=== PATIENT | female | born 1975 | race Hispanic/Latino ===

== ENCOUNTER 2019-03-06 17:04 | Emergency (ER) | payer SELFPAY ==
[~2019-03-06] VITALS: Ht 162.6 cm; Wt 68.0 kg
--- OUTSIDE RECORDS SUMMARY | 2019-03-06 17:06 | XMS REPORT | Clinical Summary ---
Author Author [facility] Address Unknown Phone Unavailable Care Team Providers Care Web[employer] Commerce Developer Name Role Phone Asked, No Pcp PCP Unavailable Allergies Comments Active Allergy Reactions Severity Noted Date Facial swelling Codeine High 01/20/2018 Medications End Date Status Medication Sig Dispensed Refills Start Date Active docusate sodium (COLACE) Take 100 mg 0 100 MG capsule by mouth 2 (two) times a day. Active polyethylene glycol Take 17 g by 0 (MIRALAX) 17 gram packet mouth daily. Active acetaminophen (TYLENOL) Take 650 mg 0 325 MG tablet by mouth every 6 (six) hours as needed (headache). 05/13/2018 Discontinued TPN FOR DISCHARGE See most 1 Package 0 recent TPN 8 order. 05/24/2018 Discontinued omeprazole (PriLOSEC) 40 Take 1 60 capsule 1 MG capsule capsule (40 8 mg total) by mouth 2 (two) times a day. 05/24/2018 Discontinued ondansetron ODT Take 4 mg by 0 (ZOFRAN-ODT) 4 MG mouth every 8 disintegrating tablet (eight) hours as needed for nausea or vomiting. 05/24/2018 Discontinued promethazine (PHENERGAN) Take 12.5 mg 0 12.5 MG tablet by mouth every 6 (six) hours as needed for nausea or vomiting. 05/24/2018 Discontinued UNABLE TO FIND Bariatric 0 Vitamins 05/28/2018 Discontinued dextrose 5 % and 0.9 % Infuse 75 0 NaCl (DEXTROSE 5%-0.9% mL/hr into a 8 SODIUM CHLORIDE) infusion venous catheter continuously for 30 days. 05/28/2018 Discontinued enoxaparin (LOVENOX) 40 Inject 0.4 mL 12 mL 0 mg/0.4 mL syringe (40 mg total) 8 under the skin daily for 30 days. 05/28/2018 Discontinued ondansetron (ZOFRAN) 4 Infuse 2 mL 20 mL 0 mg/2 mL injection (4 mg total) 8 into a venous catheter every 4 (four) hours as needed for nausea or vomiting for up to 1 day. 05/28/2018 Discontinued pantoprazole 4 mg/mL in Infuse 10 mL 0 sodium chloride injection (40 mg total) 8 into a venous catheter daily before breakfast for 1 day. 06/26/2018 gabapentin (NEURONTIN) Take 1 90 capsule 0 300 mg capsule capsule (300 8 mg total) by mouth 3 (three) times a day for 30 days. 05/27/2018 Discontinued HYDROcodone-acetaminophen Take 1 tablet 28 tablet 0 (NORCO) 7.5-325 mg per by mouth 8 tablet every 6 (six) hours as needed for moderate pain for up to 7 days. Max Daily Amount: 4 tablets 05/27/2018 Discontinued oxyCODone 7.5 mg tablet, Take 7.5 mg 28 each 0 oral only by mouth 8 every 4 (four) hours for 7 days. Max Daily Amount: 45 mg 05/27/2018 Discontinued HYDROcodone-acetaminophen Take 1 tablet 28 tablet 0 (NORCO) 7.5-325 mg per by mouth 8 tablet every 6 (six) hours as needed for moderate pain for up to 7 days. Max Daily Amount: 4 tablets 06/03/2018 HYDROcodone-acetaminophen Take 1 tablet 28 tablet 0 (NORCO) 7.5-325 mg per by mouth 8 tablet every 6 (six) hours as needed for moderate pain for up to 7 days. Max Daily Amount: 4 tablets 06/04/2018 HYDROcodone-acetaminophen Take 2 28 tablet 0 (NORCO) 7.5-325 mg per tablets by 8 tablet mouth every 6 (six) hours as needed for moderate pain for up to 7 days. Max Daily Amount: 8 tablets 06/09/2018 traMADol (ULTRAM) 50 mg Take 1 tablet 25 tablet 0 tabletIndications: (50 mg total) 8 Postoperative pain by mouth every 6 (six) hours as needed for moderate pain for up to 7 days. Active Problems Problem Noted Date Rectus sheath hematoma 06/06/2018 Last Assessment & Plan: Under ultrasound guidance, the rectus sheath hematoma was aspirated and 55mL of dark bloody fluid was removed after prepping skin with alcohol and betadine. No signs of infection in aspirated fluid. Lidocaine given before aspiration. 16 gauge needle used. Patient given risks and benefits and she agreed to proceed and signed consent form. No complications. Hernia, lateral ventral 05/26/2018 GI obstruction 05/24/2018 Abdominal pain 05/24/2018 Ventral incisional hernia without obstruction or gangrene 05/14/2018 Last Assessment & Plan: The patient has multiple midline ventral incisional hernias with the largest are on the umbilicus. This area is tender to palpation. She reports her upper abdominal pain is resolved and denies any fevers chills or night sweats. Due to her symptoms, I will schedule a laparoscopic ventral hernia repair with mesh. The patient will need a CBC, BMP and EKG prior to surgery. Risks and benefits were discussed with the patient, the patient agreed to proceed. Surgery follow-up examination 03/03/2018 Last Assessment & Plan: Doing well s/p open VHR with mesh. 55 mL of old blood aspirated from rectus sheath using U/S. Patient still with some epigastric pain after eating. Last UGI shows no pathology. She will return to clinic in one month to see if symptoms improve. If not, the patient will need CT and possible EGD with possible dilation. Epigastric abdominal pain 02/18/2018 Complications of bariatric procedures 01/21/2018 Last Assessment & Plan: The patient is s/p sleeve leak from outside hospital and s/p gastric stent. 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 Today's upper GI shows no obstruction. Will plan for removal of stent in about 2 weeks. Continue abx. Will prescribe diflucan for vaginal yeast infection. Benadryl for itching. Encounters Care Team Description Date Type Specialty Ming Luna MD Surgery follow-up examination (Primary Dx) 10/22/2018 Orders Only General Surgery Ming Luna MD 07/07/2018 Hospital Radiology Encounter Lydia Kirk MD Paresthesias (Primary Dx) 06/30/2018 Emergency Emergency Medicine Ming Luna MD Hematoma of rectus sheath, subsequent encounter (Primary Dx); Surgery follow-up examination 06/23/2018 Office Visit General Surgery Ming Luna MD Dysphagia, unspecified type 06/16/2018 Hospital Radiology Encounter Ming Luna MD 06/09/2018 Telephone General Surgery Ming Luna MD Dysphagia, unspecified type (Primary Dx) 06/09/2018 Orders Only General Surgery Luis A Flannery MD Morris, Lee M., MD GI obstruction (HCC) (Primary Dx); Hematoma of rectus sheath, initial encounter; Abdominal pain, acute, generalized 06/05/2018 Hospital General Surgery - Encounter 06/06/2018 Ming Luna MD Surgery follow-up examination (Primary Dx) 06/03/2018 Office Visit General Surgery Brigida Emerson, SIMON 06/02/2018 Telephone General Surgery Brigida Emerson RN Postoperative pain (Primary Dx) 06/02/2018 Orders Only General Surgery Ming Luna MD LAPAROSCOPIC VENTRAL HERNIA REPAIR WITH MESH 05/26/2018 Surgery General Surgery Mary Soliman, SAMANTHA 05/26/2018 Anesthesia General Surgery Event Santo Lovett MD Morris, Lee M., MD Urinary retention (Primary Dx); Hernia, lateral ventral 05/24/2018 [facility] General Surgery - Encounter 05/28/2018 Shalom Bay MD GI obstruction (HCC) (Primary Dx); Complications of bariatric procedures; Epigastric abdominal pain; Ventral incisional hernia without obstruction or gangrene 05/24/2018 [facility] General Surgery Encounter N/A 05/24/2018 Intake Access Ming Luna MD Ventral hernia without obstruction or gangrene 05/21/2018 Pre-Admit Pre-Admission Testing Testing Appointment Osvaldo Carlisle MA Ventral hernia without obstruction or gangrene (Primary Dx) 05/14/2018 Transcribe General Surgery Orders Ming Luna MD Ventral incisional hernia without obstruction or gangrene (Primary Dx) 05/13/2018 Office Visit General Surgery N/A 03/27/2018 Intake Ming Banegas MD Surgery follow-up examination (Primary Dx); Epigastric abdominal pain 03/13/2018 Office Visit General Surgery Ming Luna MD Dysphagia, unspecified type (Primary Dx) 03/13/2018 Orders Only General Surgery after 03/05/2018 Family History Medical History Relation Name Comments No Known Problems Brother Other Father tumor Stroke Father No Known Problems Maternal Grandfather No Known Problems Maternal Grandmother Hypertension Mother No Known Problems Paternal Grandfather Other Paternal heart problems Grandmother Heart attack Paternal Uncle No Known Problems Sister No Known Problems Son Relation Name Status Comments Brother Father Alive Maternal Grandfather Maternal Grandmother Mother Alive Paternal Grandfather Paternal Grandmother Paternal Uncle Sister Alive Son Alive Social History Date Tobacco Use Types Packs/Day Years Used Never Smoker Smokeless Tobacco: Never Used Alcohol Use Drinks/Week oz/Week Comments Yes occasional Sex Assigned at Date Recorded Not on file Industry Job Start Date Occupation Not on file Not on file Not on file Travel End Travel History Travel Start No recent travel history available. Last Filed Vital Signs Time Taken Vital Sign Reading 06/30/2018 10:26 AM TRAVEL PROFESSIONAL Blood Pressure 112/65 06/30/2018 10:26 AM TRAVEL PROFESSIONAL Pulse 59 06/30/2018 10:26 AM TRAVEL PROFESSIONAL Temperature 36.7 C (98 F) 06/30/2018 10:26 AM TRAVEL PROFESSIONAL Respiratory Rate 15 06/30/2018 10:26 AM TRAVEL PROFESSIONAL Oxygen Saturation 100% - Inhaled Oxygen - Concentration 06/30/2018 7:48 AM TRAVEL PROFESSIONAL Weight 71.2 kg (157 lb) 06/30/2018 7:48 AM TRAVEL PROFESSIONAL Height 165.1 cm (5' 5") 06/30/2018 7:48 AM TRAVEL PROFESSIONAL Body Mass Index 26.13 Plan of Treatment Health Maintenance Due Date Last Done Comments INFLUENZA VACCINE 02/26/2019 Implants Device Identifier Shelf Expiration Date Model / Serial / Lot Implanted Type Area Manufactur er 12/23/2022 [id number] / / [id number] Mesh Hernia Soft 12 X 12in - Surgical N/A: Abdomen, [employer] [id number] Mesh or Middle Implanted: Qty: 1 on 05/26/2018 by Tissue Quadrant/Non Ming Luna MD [employer] 04/27/2020 ARELY [id number] / / [id number] Stent Espgl Endomaxx Otw Surgical N/A: N/A MERIT [id number] Flcvrd - [id number] Stents MEDICAL Implanted: Qty: 1 on 01/24/2018 by SYSTEMS Ming Luna MD INC Procedures Comments Procedure Name Priority Date/Time Associated Diagnosis MRI BRAIN WO CONTRAST STAT 06/30/2018 9:53 AM TRAVEL PROFESSIONAL XR CHEST 1 VW PORTABLE STAT 06/30/2018 8:26 AM TRAVEL PROFESSIONAL ESTIMATED GFR STAT 06/30/2018 8:19 AM TRAVEL PROFESSIONAL TROPONIN STAT 06/30/2018 8:19 AM TRAVEL PROFESSIONAL CREATINE KINASE, TOTAL STAT 06/30/2018 (CPK) 8:19 AM TRAVEL PROFESSIONAL COMPREHENSIVE METABOLIC STAT 06/30/2018 PANEL 8:19 AM TRAVEL PROFESSIONAL HC COMPLETE BLD COUNT STAT 06/30/2018 W/AUTO DIFF 8:19 AM TRAVEL PROFESSIONAL ECG 12-LEAD STAT 06/30/2018 7:57 AM TRAVEL PROFESSIONAL FL UGI W KUB Routine 06/16/2018 Dysphagia, unspecified 9:25 AM TRAVEL PROFESSIONAL type URINALYSIS SCREEN AND Routine 06/06/2018 MICROSCOPY, WITH REFLEX 6:50 AM TRAVEL PROFESSIONAL TO CULTURE URINE CULTURE Routine 06/06/2018 6:50 AM TRAVEL PROFESSIONAL TYPE AND SCREEN Routine 06/06/2018 4:35 AM TRAVEL PROFESSIONAL ESTIMATED GFR Routine 06/06/2018 3:52 AM TRAVEL PROFESSIONAL BASIC METABOLIC PANEL Routine 06/06/2018 3:52 AM TRAVEL PROFESSIONAL PROTHROMBIN TIME WITH INR STAT 06/06/2018 1:[address] ABDOMEN PELVIS W STAT 06/05/2018 CONTRAST 11:56 PM TRAVEL PROFESSIONAL MAGNESIUM LEVEL STAT 06/05/2018 9:50 PM TRAVEL PROFESSIONAL ESTIMATED GFR STAT 06/05/2018 9:50 PM TRAVEL PROFESSIONAL LIPASE LEVEL STAT 06/05/2018 9:50 PM TRAVEL PROFESSIONAL COMPREHENSIVE METABOLIC STAT 06/05/2018 PANEL 9:50 PM TRAVEL PROFESSIONAL HC COMPLETE BLD COUNT STAT 06/05/2018 W/AUTO DIFF 9:50 PM TRAVEL PROFESSIONAL ESTIMATED GFR Routine 05/27/2018 4:48 AM CDT BASIC METABOLIC PANEL Routine 05/27/2018 4:48 AM CDT HC COMPLETE BLD COUNT Routine 05/27/2018 W/AUTO DIFF 4:48 AM CDT ESTIMATED GFR STAT 05/26/2018 4:40 PM CDT BASIC METABOLIC PANEL STAT 05/26/2018 4:40 PM CDT HC COMPLETE BLD COUNT STAT 05/26/2018 W/AUTO DIFF 4:40 PM CDT GRAM STAIN Timed 05/26/2018 10:49 AM CDT TISSUE CULTURE Timed 05/26/2018 10:49 AM CDT SURGICAL PATHOLOGY Routine 05/26/2018 REQUEST 10:32 AM CDT ANESTHESIA INTUBATION Routine 05/26/2018 10:17 AM CDT Procedure Note - Francis Emerson - 05/26/2018 10:17 AM CDT Airway Date/Time: 05/26/2018 9:54 AM Performed by: JOYCE DOCKERY Authorized by: JOYCE DOCKERY Location: OR Difficult Airway: No Preoxygena carmina with 100% O2: Yes C-spine Precaution s Maintained Throughout : Yes Mask Ventilatio n: Easy mask Final Airway Type: Endotrache al airway Final Endotrache al Airway: ETT Cuffed: Yes Technique Used: Direct laryngosco py Insertion Site: Oral Blade Type: [place] Laryngosco pe Blade/Vide olaryngosc ope Blade Size: 2 ETT Size (mm): 7.0 Cuff at minimum occlusion pressure: Yes Measured from: Lips ETT to Lips (cm): 22 Placement Verified by: CO2 detection, direct visualizat ion and equal breath sounds Laryngosco pic view: Grade I - full view of glottis Rapid Sequence Induction (RSI): No Modified RSI: No Number of Attempts at Approach: 1 Easy BMV w/ OPA. DL x1 by Jorge emergency medicine . ETT passed atraumatic ally. REPAIR, HERNIA, VENTRAL 05/26/2018 Hernia, lateral ventral OR INCISIONAL, 10:00 AM CDT LAPAROSCOPIC Case Notes REQ 1000 START, MESH Special Needs REQ 1000 START, MESH SURGICAL PATHOLOGY Routine 05/26/2018 REQUEST 9:32 AM CDT TYPE AND SCREEN Routine 05/26/2018 3:40 AM CDT PARTIAL THROMBOPLASTIN Routine 05/26/2018 TIME (PTT) 3:40 AM CDT PROTHROMBIN TIME WITH INR Routine 05/26/2018 3:40 AM CDT HC COMPLETE BLD COUNT STAT 05/25/2018 W/AUTO DIFF 12:10 AM CDT ESTIMATED GFR Routine 05/24/2018 9:39 AM CDT BASIC METABOLIC PANEL Routine 05/24/2018 9:39 AM CDT HC COMPLETE BLD COUNT Routine 05/24/2018 W/AUTO DIFF 9:[address] ABD/PELVIC EXTERNAL Routine 05/24/2018 STUDY 1:[address] ABD/PELVIC EXTERNAL Routine 05/24/2018 STUDY 1:12 AM CDT ESTIMATED GFR STAT 05/24/2018 12:10 AM CDT PHOSPHORUS LEVEL STAT 05/24/2018 12:10 AM CDT MAGNESIUM LEVEL STAT 05/24/2018 12:10 AM CDT BASIC METABOLIC PANEL STAT 05/24/2018 12:10 AM CDT CBC HEMOGRAM Routine 05/21/2018 Ventral hernia without 9:50 AM CDT obstruction or gangrene ECG 12-LEAD Routine 05/21/2018 Ventral hernia without 9:49 AM CDT obstruction or gangrene ESTIMATED GFR Routine 05/21/2018 9:27 AM CDT BASIC METABOLIC PANEL Routine 05/21/2018 Ventral hernia without 9:27 AM CDT obstruction or gangrene after 03/05/2018 Results * MRI Brain Wo Contrast (06/30/2018 9:53 AM TRAVEL PROFESSIONAL) Specimen Narrative Performed At EXAMINATION:MRI BRAIN WO CONTRAST [facility] CLINICAL HISTORY:Focal neuro deficit6 hrsstroke suspected COMPARISON: None. FINDINGS: Noncontrast MRI of the brain is interpreted. Diffusion imaging demonstrates no abnormal restricted diffusion. The brain is normal in morphology and in signal intensity. No extra-axial collection or mass effect is seen. No hemorrhage is identified. Major vascular flow-voids are preserved. IMPRESSION: No evidence of recent infarct or other acute intracranial abnormality. [id number] Procedure Note Interface, Radiology Results Incoming - 06/30/2018 9:59 AM TRAVEL PROFESSIONAL EXAMINATION: MRI BRAIN WO CONTRAST CLINICAL HISTORY: Focal neuro deficit 6 hrs stroke suspected COMPARISON: None. FINDINGS: Noncontrast MRI of the brain is interpreted. Diffusion imaging demonstrates no abnormal restricted diffusion. The brain is normal in morphology and in signal intensity. No extra-axial collection or mass effect is seen. No hemorrhage is identified. Major vascular flow-voids are preserved. IMPRESSION: No evidence of recent infarct or other acute intracranial abnormality. [id number] Performing Organization Address City/State/Zipcode Phone Number [facility] [address] [place] [address] * XR Chest 1 Vw Portable (06/30/2018 8:26 AM TRAVEL PROFESSIONAL) Specimen Narrative Performed At EXAMINATION:XR CHEST 1 VW PORTABLE [facility] CLINICAL HISTORY:Shortness of breath COMPARISON:January 25, 2018 chest IMPRESSION: Unremarkable single view chest The lungs are clear. Mild patchy atelectasis retrocardiac left base has cleared Right PICC line catheter has been removed The heart is not enlarged. The bony structures are within normal limits. Cholecystectomy clips as on previous. [id number] Procedure Note Interface, Radiology Results Incoming - 06/30/2018 8:30 AM TRAVEL PROFESSIONAL EXAMINATION: XR CHEST 1 VW PORTABLE CLINICAL HISTORY: Shortness of breath COMPARISON: January 25, 2018 chest IMPRESSION: Unremarkable single view chest The lungs are clear. Mild patchy atelectasis retrocardiac left base has cleared Right PICC line catheter has been removed The heart is not enlarged. The bony structures are within normal limits. Cholecystectomy clips as on previous. [id number] Performing Organization Address City/[facility]/Zipcode Phone Number [facility] [address] [place] [address] * Estimated GFR (06/30/2018 8:19 AM TRAVEL PROFESSIONAL) Only the most recent of 8 results within the time period is included. Pathologist [facility] Estimated GFR >=90 mL/min/1.73 m2 [place] Comment: [facility] [place] [place] rpretation G1 >=90 Normal or high G2 60-89Mildly decreased [id number] Mildly to moderately decreased [id number] Moderately to severely decreased G4 15-29Severely decreased G5 <15Kidney failure The eGFR was calculated using the Chronic Kidney Disease Epidemiology Collaboration (CKD-EPI) equation. Interpretation is based on recommendations of the National Kidney Foundation-Kidney Disease Outcomes Quality Initiative (NKF-KDOQI) published in 2014. Specimen Plasma specimen Performing Organization Address [facility] Phone Number [address] [place] [address] PATHOLOGY AND GENOMIC MEDICINE [address] * Troponin (06/30/2018 8:19 AM TRAVEL PROFESSIONAL) [facility] Troponin <0.300 0.000 - 0.300 ng/mL [place] Comment: [facility] 0.30 - 1.49 [facility] ng/mlMay indicate increased risk of acute coronary syndrome. >=1.5 ng/ml Consistent with acute myocardial infarction. The diagnostic value of a single normal or non-diagnostic result is questionable.Serial samples at 2-6 hour intervals are required to rule out acute myocardial injury. Specimen Plasma specimen Performing Organization Address [facility] Phone Number [address] [place] [address] PATHOLOGY AND GENOMIC MEDICINE [address] * CBC with platelet and differential (06/30/2018 8:19 AM TRAVEL PROFESSIONAL) Only the most recent of 6 results within the time period is included. [facility] WBC 6.47 4.50 - 11.00 k/uL [facility] RBC 3.54 (L) 4.20 - 5.50 m/uL [facility] HGB 11.2 (L) 12.0 - 16.0 g/dL [facility] HCT 33.7 (L) 37.0 - 47.0 % [facility] MCV 95.2 82.0 - 100.0 fL [facility] MCH 31.6 27.0 - 34.0 pg [facility] MCHC 33.2 31.0 - 37.0 g/dL [facility] RDW - SD 52.6 37.0 - 55.0 fL [facility] MPV 9.8 8.8 - 13.2 fL [facility] Platelet count 284 150 - 400 k/uL [facility] Nucleated RBC 0.00 /100 WBC [facility] Neutrophils 54.0 39.0 - 69.0 % [facility] Lymphocytes 33.5 25.0 - 45.0 % [facility] Monocytes 7.4 0.0 - 10.0 % [facility] Eosinophils 4.3 0.0 - 5.0 % [facility] Basophils 0.6 0.0 - 1.0 % [facility] Specimen Blood Performing Organization Address City/[facility] Phone Number [address] [place] [address] PATHOLOGY AND GENOMIC MEDICINE [address] * Creatine kinase, total (CPK) (06/30/2018 8:19 AM TRAVEL PROFESSIONAL) Creatine kinase 29 26 - 192 U/L [facility] Specimen Plasma specimen Performing Organization Address City/[facility] Phone Number [address] [place] [address] PATHOLOGY AND GENOMIC MEDICINE [address] * Comprehensive metabolic panel (06/30/2018 8:19 AM TRAVEL PROFESSIONAL) Only the most recent of 2 results within the time period is included. Pathologist [facility] Sodium 136 135 - 148 mEq/L [facility] Potassium 3.4 (L) 3.5 - 5.0 mEq/L [facility] Chloride 102 98 - 112 mEq/L [facility] CO2 21 (L) 24 - 31 mEq/L [facility] Anion gap 13@ANIO 7 - 15 mEq/L [facility] BUN 16 6 - 20 mg/dL [facility] Creatinine 0.70 0.50 - 0.90 mg/dL [facility] Glucose 97 65 - 99 mg/dL [facility] Calcium 9.6 8.3 - 10.2 mg/dL [facility] Protein 8.2 6.3 - 8.3 g/dL [place] Comment: [facility] 4.6-7.0 g/dL 1 week 4.4-7.6 g/dL 7 months-1year 5.1-7.3 g/dL 1-2 years5.6-7 .5 g/dL >3 years6.0-8 .0 g/dL 18-150 6.3-8.3 g/dL Albumin 4.1 3.5 - 5.0 g/dL [facility] A/G ratio 1.0 0.7 - 3.8 [facility] Alkaline 70 35 - 104 U/L [place] phosphatase [facility] AST 18 10 - 35 U/L [facility] ALT 8 5 - 50 U/L [facility] Total bilirubin 0.8 0.0 - 1.2 mg/dL [facility] Specimen Plasma specimen Performing Organization Address City/State/Zipcode Phone Number [facility] [address] [place] [address] PATHOLOGY AND GENOMIC MEDICINE [facility] [id number] [place] [address] [place] [address] [facility] * ECG 12 lead (06/30/2018 7:57 AM TRAVEL PROFESSIONAL) Only the most recent of 2 results within the time period is included. Pathologist [facility] Ventricular 68 [facility] MUSE rate Atrial rate 68 [facility] MN interval 134 [facility] QRSD interval 84 [facility] QT interval 400 [facility] MUSE QTC interval 425 [facility] MUSE P axis 1 22 [facility] MUSE QRS axis 1 14 [facility] MUSE T wave axis 17 [facility] MUSE EKG impression Normal sinus rhythm-Normal [facility] MUSE ECG-In automated comparison with ECG of 21-MAY-2018 09:49,-No significant change was found- Specimen Narrative Performed At Performing Organization Address City/State/Zipcode Phone Number [facility] MUSE [address] [place] [address] * FL UGI W KUB (06/16/2018 9:25 AM TRAVEL PROFESSIONAL) Specimen Narrative Performed At EXAMINATION:FL UGI W KUB [facility] CLINICAL HISTORY:R13.10 Dysphagiaunspecified, difficulty eatings p sleeve COMPARISON:February 19, 2018 upper GI study TECHNIQUE: The examination was performed utilizing Omnipaque. Fluoroscopy time 2 minutes 6 seconds. 14 exposures. FINDINGS: Psychiatric Nursing Aide view abdomen demonstrates cholecystectomy clips right upper quadrant. Gastric bypass clips near the GE junction level. Scattered fecal material throughout the colon The patient was able to swallow without difficulty. There is prompt flow of contrast through the esophagus into the residual gastric pouch. Contrast then freely flows into the gastric pouch into the duodenal C-loop and small bowel. There is no significant delay in flow of contrast There is no extravasation. There is mild gastroesophageal reflux evident during the study. Overhead images demonstrated contrast opacification of small bowel loops throughout the abdomen IMPRESSION: Previous gastric bypass Gastric bypass is intact. No delay in transit from the esophagus into the gastric pouch and subsequently into the duodenum and small bowel No extravasation. Mild gastroesophageal reflux [id number] Procedure Note Interface, Radiology Results Incoming - 06/16/2018 9:41 AM TRAVEL PROFESSIONAL EXAMINATION: FL UGI W KUB CLINICAL HISTORY: R13.10 Dysphagia unspecified, difficulty eating s p sleeve COMPARISON: February 19, 2018 upper GI study TECHNIQUE: The examination was performed utilizing Omnipaque. Fluoroscopy time 2 minutes 6 seconds. 14 exposures. FINDINGS: Psychiatric Nursing Aide view abdomen demonstrates cholecystectomy clips right upper quadrant. Gastric bypass clips near the GE junction level. Scattered fecal material throughout the colon The patient was able to swallow without difficulty. There is prompt flow of contrast through the esophagus into the residual gastric pouch. Contrast then freely flows into the gastric pouch into the duodenal C-loop and small bowel. There is no significant delay in flow of contrast There is no extravasation. There is mild gastroesophageal reflux evident during the study. Overhead images demonstrated contrast opacification of small bowel loops throughout the abdomen IMPRESSION: Previous gastric bypass Gastric bypass is intact. No delay in transit from the esophagus into the gastric pouch and subsequently into the duodenum and small bowel No extravasation. Mild gastroesophageal reflux [id number] Performing Organization Address [facility] Phone Number [facility] [address] [place] [address] * Urinalysis screen and microscopy, with reflex to culture (06/06/2018 6:50 AM TRAVEL PROFESSIONAL) Specimen site Clean catch [facility] DEPARTMENT OF PATHOLOGY AND GENOMIC MEDICINE Color, UA Keri [facility] DEPARTMENT OF PATHOLOGY AND GENOMIC MEDICINE Appearance, UA Clear [facility] DEPARTMENT OF PATHOLOGY AND GENOMIC MEDICINE Specific >1.060 (H) 1.001 - 1.035 [facility] DEPARTMENT gravity, OF PATHOLOGY AND GENOMIC MEDICINE pH, UA 5.0 5.0 - 8.5 [facility] DEPARTMENT OF PATHOLOGY AND GENOMIC MEDICINE Protein, UA 1+ (A) Negative [facility] DEPARTMENT OF PATHOLOGY AND GENOMIC MEDICINE Glucose, UA Negative Negative [facility] DEPARTMENT OF PATHOLOGY AND GENOMIC MEDICINE Ketones, UA 1+ (A) Negative [facility] DEPARTMENT OF PATHOLOGY AND GENOMIC MEDICINE Bilirubin, UA Positive@UBIL (A) Negative [facility] DEPARTMENT OF PATHOLOGY AND GENOMIC MEDICINE Blood, UA Negative Negative [facility] DEPARTMENT OF PATHOLOGY AND GENOMIC MEDICINE Nitrite, UA Negative Negative [facility] DEPARTMENT OF PATHOLOGY AND GENOMIC MEDICINE Urobilinogen, 4.0 (A) <2.0 [facility] UA OF PATHOLOGY AND GENOMIC MEDICINE Leukocyte Negative Negative [facility] DEPARTMENT esterase, UA OF PATHOLOGY AND GENOMIC MEDICINE Epithelial 2 /HPF [facility] DEPARTMENT cells, UA OF PATHOLOGY AND GENOMIC MEDICINE WBC, UA <1 0 - 4 /HPF [facility] DEPARTMENT OF PATHOLOGY AND GENOMIC MEDICINE RBC, UA None seen 0 - 5 /HPF [facility] DEPARTMENT OF PATHOLOGY AND GENOMIC MEDICINE Bacteria, UA Few None seen [facility] DEPARTMENT OF PATHOLOGY AND GENOMIC MEDICINE Yeast, UA None seen [facility] DEPARTMENT OF PATHOLOGY AND GENOMIC MEDICINE Yeast with None seen [facility] pseudohyphae, OF PATHOLOGY UA AND GENOMIC MEDICINE Specimen Urine Performing Organization Address City/[facility] Hospitalcode Phone Number [address] [address] PATHOLOGY AND GENOMIC MEDICINE * Urine culture (06/06/2018 6:50 AM TRAVEL PROFESSIONAL) Pathologist [facility] Urine culture SEE COMMENTComment: [facility] DEPARTMENT Bacteriuria screen negative. OF PATHOLOGY AND GENOMIC MEDICINE Specimen Performing Organization Address City/[facility] Hospitalcode Phone Number [facility] [place] [address] PATHOLOGY AND GENOMIC MEDICINE * Type and screen (06/06/2018 4:35 AM TRAVEL PROFESSIONAL) Only the most recent of 2 results within the time period is included. ABO grouping O [facility] DEPARTMENT OF PATHOLOGY AND GENOMIC MEDICINE Rh type POS [facility] DEPARTMENT OF PATHOLOGY AND GENOMIC MEDICINE Antibody screen NEG [facility] DEPARTMENT (gel) OF PATHOLOGY AND GENOMIC MEDICINE Specimen Blood Performing Organization Address [facility]code Phone Number [facility] [place] [address] PATHOLOGY AND GENOMIC MEDICINE * Basic metabolic panel (06/06/2018 3:52 AM TRAVEL PROFESSIONAL) Only the most recent of 6 results within the time period is included. Sodium 140 135 - 148 mEq/L [facility] DEPARTMENT OF PATHOLOGY AND GENOMIC MEDICINE Potassium 3.6 3.5 - 5.0 mEq/L [facility] DEPARTMENT OF PATHOLOGY AND GENOMIC MEDICINE Chloride 109 98 - 112 mEq/L [facility] DEPARTMENT OF PATHOLOGY AND GENOMIC MEDICINE CO2 20 (L) 24 - 31 mEq/L [facility] DEPARTMENT OF PATHOLOGY AND GENOMIC MEDICINE Anion gap 11@ANIO 7 - 15 mEq/L [facility] DEPARTMENT OF PATHOLOGY AND GENOMIC MEDICINE BUN 14 6 - 20 mg/dL [facility] DEPARTMENT OF PATHOLOGY AND GENOMIC MEDICINE Creatinine 0.58 0.50 - 0.90 mg/dL [facility] DEPARTMENT OF PATHOLOGY AND GENOMIC MEDICINE Glucose 77 65 - 99 mg/dL [facility] DEPARTMENT OF PATHOLOGY AND GENOMIC MEDICINE Calcium 8.4 8.3 - 10.2 mg/dL [facility] DEPARTMENT OF PATHOLOGY AND GENOMIC MEDICINE Specimen Plasma specimen Performing Organization Address City/[facility]/Zipcode Phone Number [facility] [place] [address] PATHOLOGY AND GENOMIC MEDICINE * Prothrombin time with INR (06/06/2018 1:27 AM TRAVEL PROFESSIONAL) Only the most recent of 2 results within the time period is included. Prothrombin 13.0 11.5 - 14.5 sec [facility] DEPARTMENT time OF PATHOLOGY AND GENOMIC MEDICINE INR 1.0 [facility] DEPARTMENT Comment: OF PATHOLOGY The International Normalized AND GENOMIC Ratio (INR) is a therapeutic MEDICINE monitoring tool for patients who are stable on oral anticoagulant therapy. An INR of 2.0-3.0 is suggested for deep vein thrombosis/pulmonary embolism. Specimen Blood Performing Organization Address City/State/Zipcode Phone Number [facility] DEPARTMENT OF [address] [place] [address] PATHOLOGY AND GENOMIC MEDICINE * CT Abdomen Pelvis W Contrast (06/05/2018 11:56 PM TRAVEL PROFESSIONAL) Specimen Narrative Performed At CT ABDOMEN PELVIS W CONTRAST [facility] CLINICAL INDICATION:abd pain TECHNIQUE: Multidetector CT of the abdomen and pelvis was performed following intravenous administration of iodinated contrast with multiplanar reformats. CT scans are performed using radiation dose reduction techniques (iterative reconstruction and/or automated exposure control). Technical factors are evaluated and adjusted to ensure appropriate moderation of exposure. Automated dose management technology is applied to adjust radiation exposure while achieving a diagnostic quality image. COMPARISON:05/24/2018 abdomen/pelvis CT FINDINGS: Lung bases:Clear. Liver:Normal. Gallbladder and biliary:The gallbladder is absent. Clips within the gallbladder fossa. Pancreas:Mildly atrophic with fatty replacement. Spleen:Normal. 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 Large and small bowel are normal in caliber. Appendix is visualized and appears normal. Few scattered colonic diverticulosis without acute inflammatory change. Adrenals:Normal. Kidneys and ureters:No mass or hydronephrosis. Urinary bladder:Normal. Lymph nodes:No enlarged lymph nodes in the abdomen or pelvis. Peritoneum:No ascites or free air. Vascular:Unremarkable. Reproductive organs:Prior hysterectomy. Right adnexum is normal. Left adnexum is not visualized. Abdominal wall: Surgical changes related to ventral hernia repair. Large hyperdense mass in the rectus abdominis musculature at the midline which measures approximately 17 cm craniocaudally by approximately 4 cm AP by 7 cm transversely, consistent with a hematoma. Bones:1.3 cm anterolisthesis of L5 on S1 related to chronic bilateral pars defects. Associated moderate degenerative disc change at L5-S1. No acute bony abnormality. IMPRESSION: Large anterior abdominal wall hematoma centered in the rectus abdominis muscles. Surgical changes related to hernia repair. Otherwise, no significant interval change compared to the prior study. [facility]-[id number] Procedure Note Interface, Radiology Results Incoming - 06/06/2018 12:[address] ABDOMEN PELVIS W CONTRAST CLINICAL INDICATION: abd pain TECHNIQUE: Multidetector CT of the abdomen and pelvis was performed following intravenous administration of iodinated contrast with multiplanar reformats. CT scans are performed using radiation dose reduction techniques (iterative reconstruction and/or automated exposure control). Technical factors are evaluated and adjusted to ensure appropriate moderation of exposure. Automated dose management technology is applied to adjust radiation exposure while achieving a diagnostic quality image. COMPARISON: 05/24/2018 abdomen/pelvis CT FINDINGS: Lung bases: Clear. Liver: Normal. Gallbladder and biliary: The gallbladder is absent. Clips within the gallbladder fossa. Pancreas: Mildly atrophic with fatty replacement. Spleen: Normal. 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 Large and small bowel are normal in caliber. Appendix is visualized and appears normal. Few scattered colonic diverticulosis without acute inflammatory change. Adrenals: Normal. Kidneys and ureters: No mass or hydronephrosis. Urinary bladder: Normal. Lymph nodes: No enlarged lymph nodes in the abdomen or pelvis. Peritoneum: No ascites or free air. Vascular: Unremarkable. Reproductive organs: Prior hysterectomy. Right adnexum is normal. Left adnexum is not visualized. Abdominal wall: Surgical changes related to ventral hernia repair. Large hyperdense mass in the rectus abdominis musculature at the midline which measures approximately 17 cm craniocaudally by approximately 4 cm AP by 7 cm transversely, consistent with a hematoma. Bones: 1.3 cm anterolisthesis of L5 on S1 related to chronic bilateral pars defects. Associated moderate degenerative disc change at L5-S1. No acute bony abnormality. IMPRESSION: Large anterior abdominal wall hematoma centered in the rectus abdominis muscles. Surgical changes related to hernia repair. Otherwise, no significant interval change compared to the prior study. [facility]-[id number] Performing Organization Address City/[facility]/Zipcode Phone Number [facility] [address] [place] [address] * Magnesium level (06/05/2018 9:50 PM TRAVEL PROFESSIONAL) Only the most recent of 2 results within the time period is included. Magnesium 2.8 (H) 1.6 - 2.6 mg/dL [facility] DEPARTMENT OF PATHOLOGY AND GENOMIC MEDICINE Specimen Plasma specimen Performing Organization Address City/[facility]/Zipcode Phone Number [facility] DEPARTMENT [address] [address] PATHOLOGY AND GENOMIC MEDICINE * Lipase level (06/05/2018 9:50 PM TRAVEL PROFESSIONAL) Pathologist [facility] Lipase 22 13 - 60 U/L [facility] DEPARTMENT OF PATHOLOGY AND GENOMIC MEDICINE Specimen Plasma specimen Performing Organization Address City/[facility] Phone Number [facility] DEPARTMENT OF [address] [place] [address] PATHOLOGY AND GENOMIC MEDICINE * Tissue culture (05/26/2018 10:49 AM CDT) [facility] Tissue culture No growth after 3 days. [facility] DEPARTMENT isolate Comment: OF PATHOLOGY Specimen Information AND GENOMIC Specimen Source: Tissue MEDICINE Specimen Site: peritoneal nodule Specimen Tissue Performing Organization Address [facility]code Phone Number [facility] DEPARTMENT OF [address] [place] [address] PATHOLOGY AND GENOMIC MEDICINE * Gram stain (05/26/2018 10:49 AM CDT) [facility] Gram stain Few WBC's [facility] DEPARTMENT isolate No organisms seen OF PATHOLOGY Comment: AND GENOMIC Specimen Information MEDICINE Specimen Source: Tissue Specimen Site: peritoneal nodule Specimen Tissue Performing Organization Address [facility] Phone Number [facility] DEPARTMENT OF [address] [place] [address] PATHOLOGY AND GENOMIC MEDICINE * Surgical pathology request (05/26/2018 10:32 AM CDT) Only the most recent of 2 results within the time period is included. Pathologist [facility] DEPARTMENT OF PATHOLOGY AND GENOMIC MEDICINE Surgical See link below for PDF Lab [facility] DEPARTMENT pathology Report OF PATHOLOGY report AND GENOMIC MEDICINE Result status This is Supplemental Report [facility] DEPARTMENT for [id number] OF PATHOLOGY AND GENOMIC MEDICINE Specimen Performing Organization Address [facility] Phone Number [facility] DEPARTMENT OF [address] [place] [address] PATHOLOGY AND GENOMIC MEDICINE * Partial thromboplastin time, activated (05/26/2018 3:40 AM CDT) Pathologist [facility] PTT 33.2 23.0 - 36.0 sec [facility] DEPARTMENT Comment: OF PATHOLOGY PTT therapeutic range for AND GENOMIC unfractionated heparin is MEDICINE 61.0-112.0 seconds which corresponds to Anti-Xa 0.3-0.7 U/ml. Specimen Blood Performing Organization Address [facility]code Phone Number [facility] DEPARTMENT OF [address] [place] [address] PATHOLOGY AND GENOMIC MEDICINE * CT Abd/Pelvic External Study (05/24/2018 1:12 AM CDT) Only the most recent of 2 results within the time period is included. Specimen Narrative Performed At This exam was not acquired at a [employer] facility and has not been [facility] interpreted by a [employer] Provider.The exam was imported into our imaging system for comparisons purposes. Performing Organization Address City/[facility]/Zipcode Phone Number [facility] [address] [place] [phone] * Phosphorus level (05/24/2018 12:10 AM CDT) Phosphorus 3.2 2.4 - 4.5 mg/dL [facility] DEPARTMENT OF PATHOLOGY AND GENOMIC MEDICINE Specimen Plasma specimen Performing Organization Address [facility] [place] [address] PATHOLOGY AND [facility] MEDICINE * CBC hemogram (05/21/2018 9:50 AM CDT) WBC 8.89 4.50 - 11.00 k/uL [facility] DEPARTMENT OF PATHOLOGY AND GENOMIC MEDICINE RBC 4.50 4.20 - 5.50 m/uL [facility] DEPARTMENT OF PATHOLOGY AND GENOMIC MEDICINE HGB 13.6 12.0 - 16.0 g/dL [facility] DEPARTMENT OF PATHOLOGY AND GENOMIC MEDICINE HCT 41.3 37.0 - 47.0 % [facility] DEPARTMENT OF PATHOLOGY AND GENOMIC MEDICINE MCV 91.8 82.0 - 100.0 fL [facility] DEPARTMENT OF PATHOLOGY AND GENOMIC MEDICINE MCH 30.2 27.0 - 34.0 pg [facility] DEPARTMENT OF PATHOLOGY AND GENOMIC MEDICINE MCHC 32.9 31.0 - 37.0 g/dL [facility] DEPARTMENT OF PATHOLOGY AND GENOMIC MEDICINE RDW - SD 47.7 37.0 - 55.0 fL [facility] DEPARTMENT OF PATHOLOGY AND GENOMIC MEDICINE MPV 10.3 8.8 - 13.2 fL [facility] DEPARTMENT OF PATHOLOGY AND GENOMIC MEDICINE Platelet count 295 150 - 400 k/uL [facility] DEPARTMENT OF PATHOLOGY AND GENOMIC MEDICINE Nucleated RBC 0.00 /100 WBC [facility] DEPARTMENT OF PATHOLOGY AND GENOMIC MEDICINE Specimen Blood Performing Organization Address City/[facility]code Phone Number [address] [address] PATHOLOGY AND GENOMIC MEDICINE after 03/05/2018 Advance Directives Patient has advance care planning documents, and code status on file. For more i nformation, please contact: Kareem Lazar [address] [place] [address] Date Inactivated Comments Code Status Date Activated 05/28/2018 4:38 PM Full Code 05/26/2018 5:18 PM Code Status decision reached by: Patient
--- OUTSIDE RECORDS SUMMARY | 2019-03-06 17:06 | XMS REPORT ---
Author Author [facility] Address Unknown Phone Unavailable Care Team Providers [employer] Associate Name Role Phone Unavailable Unavailable Payers Payer Name Policy Type Policy Number Effective Date Expiration Date Problems This patient has no known problems. Allergies, Adverse Reactions, Alerts Allergy Name Allergy Type Status Severity Reaction(s) Onset Date Inactive Date Treating Clinician Comments lisinopril DA Active CT 2017-05-21 00:00:[address] 2017-05-21 00:00:00 Medications This patient has no known medications.
--- NOTE | 2019-03-06 17:24 | NUR ---
BS CLEAR AND EQUAL PER MD EVAL IN TRIAGE.
== END 2019-03-06 17:30 | disposition left against medical advice (07) ==
LOC: ER 17:04
DX: R00.2 Palpitations (principal)
CPT/HCPCS: 93005